=== PATIENT | male | born 1930 | race Caucasian/White ===

== ENCOUNTER 2016-05-21 19:45 | Observation (INO) | payer MEDICARE, OTHER ==
[~2016-05-21] VITALS: Ht 182.9 cm; Wt 100.0 kg
[~2016-05-21 19:45] MED LIST: ARIC10TA PO; CARV80 PO; CEPH500C3 PO; COUM5TAB PO; DIGO0.253 PO; HYDR-2768 PO; HYDR-3129 PO; INSP25TA OR; IRBE150T49 PO; LASI20TA PO; LIPI40TA PO; MEMA10 PO; QUET1TAB67 PO; TAMS0.4C67 PO; TEMA15 PO; [UNRECOGNIZED DRUG - OTHER] PO
[2016-05-21 20:08] VITALS: BP 132/58; PULSE 72; RESP 20; TEMP 97.4; O2SAT 96
[2016-05-21] MEDS ORDERED: SODIUM CHLORIDE 0.9% FLUSH 10 ML FLUSH IVF PRN (20:30)
--- NOTE | 2016-05-21 20:48 | PD ---
HPI Chief Complaint: Fall Time Seen by Provider: 20:41 Travel History International Travel<30 days: No Contact w/Intl Traveler<30days: No Traveled to known affect area: No History of Present Illness HPI Patient is an 86-year-old male brought into the emergency department via EMS for a change in mental status, increased falls. Discussed with over the phone, she states that he came back home after being in [place] last week , since that time he's been mumbling and has been unable to feed himself or hold a glass in his right hand. She states prior to last Saturday he was able to talk and was answering appropriately as well as feeding himself. Patient states that he's been urinating in the bed at night and today he slid from the bed to the floor, she put pillows all around him until the hospice nurse got there. Patient has been attending adult daycare. She states he is on hospice due to the dementia. She reports that he is DNR. She would like him thoroughly evaluated to make sure he did not have a stroke or a bleed. PFSH Past Medical History Alzheimer's Disease: Yes Arthritis: No Atrial Fibrillation: Yes Autoimmune Disease: No Blood Disorders: No Cancer: Yes Cardiac Catheterization: Yes Cardiovascular Problems: Yes (PACER WITH INTERNAL DEFIBRILLATOR) High Cholesterol: Yes Chest Pain: Yes Congestive Heart Failure: Yes Cerebrovascular Accident: Yes (multiple ) Coronary Artery Disease: Yes Dementia: Yes Diabetes: No Diminished Hearing: No Endocrine: No Gastrointestinal Disorders: No Headaches: No Hypertension: Yes Immune Disorder: No Musculoskeletal: No Psychiatric: No Reproductive: No Migraines: No Myocardial Infarction: Yes Seizures: No Sickle Cell Disease: No Thyroid Disease: No Past Surgical History Abdominal Surgery: Yes (HERNIA REPAIR X2) AICD: Yes ([id number] MOD#[id number]) Arteriovenous Shunt: No Cardiac Surgery: Yes (CABG 4 VESSEL BYPASS, PACER WITH IMPLANTED DEFIBRILATOR) Coronary Artery Bypass Graft: Yes (X3) Ear Surgery: No Endocrine Surgery: No Eye Surgery: No Genitourinary Surgery: Yes (TURP) Hysterectomy: Yes Insulin Pump: No Joint Replacement: No Neurologic Surgery: No Oral Surgery: No Pacemaker: Yes Thoracic Surgery: No Other Surgery: Yes (PROSTATE SX, HERNIA REPAIR x2) Social History Alcohol Use: No Tobacco Use: No (FORMER) Substance Use: No Allergies-Medications (Allergen,Severity, Reaction): Coded Allergies: MRI PRECAUTION (Verified Adverse Reaction, Severe, PACEMAKER 12-30-06 ADB, 05/21/16) Reported Meds & Prescriptions Reported Meds & Active Scripts Active Reported Keflex (Cephalexin Monohydrate) 500 Mg Cap 500 Mg PO TID [place] 10/325 (Hydrocodone-Acetaminophen 10/325) Acetaminophen 325/10 Hydrocodone Tab 1 Tab PO Q4H PRN Restoril 15 mg (Temazepam) 15 Mg Cap 1 Cap PO HS Hctz (Hydrochlorothiazide) 25 Mg Tab 25 Mg PO DAILY Lasix (Furosemide) 20 Mg Tab 20 Mg PO DAILY 30 Days [Cerofolin] 1 Tab PO DAILY Flomax (Tamsulosin HCl) 0.4 Mg Cap 0.4 Mg PO BID Inspra (Eplerenone) 25 Mg Tab 25 Mg OR DAILY Coumadin 5 mg (Warfarin Sodium) 5 Mg Tab 5 Mg PO DAILY Avapro (Irbesartan) 150 Mg Tab 300 Mg PO DAILY Namenda (Memantine) 10 Mg Tab 10 Mg PO BID Coreg Cr (Carvedilol) 80 Mg Caper 80 Mg PO DAILY Seroquel (Quetiapine Fumarate) 25 Mg Tab 100 Mg PO HS Aricept (Donepezil HCl) 10 Mg Tab 10 Mg PO BID Lipitor (Atorvastatin Calcium) 40 Mg Tab 40 Mg PO HS Digitek 0.25 mg (Digoxin) 0.25 Mg Tab 0.25 Mg PO DAILY Review of Systems ROS Limitations: Altered Mental Status Except as stated in HPI: all other systems reviewed are Neg Physical Exam Narrative GENERAL: Cachectic, well-developed, elderly gentleman. SKIN: Focused skin assessment warm/dry. HEAD: Atraumatic. Normocephalic. EYES: Pupils equal and round. No scleral icterus. No injection or drainage. MOUTH: Mucous membranes dry, no lesions, tongue and gums appear dry. ENT: No nasal bleeding or discharge. Mucous membranes pink and moist. NECK: Trachea midline. No JVD. CARDIOVASCULAR: Regular rate and rhythm. No murmur appreciated. RESPIRATORY: No accessory muscle use. Diminished with expiratory wheezing noted. GASTROINTESTINAL: Abdomen soft, non-tender, nondistended. Hepatic and splenic margins not palpable. MUSCULOSKELETAL: No obvious deformities. No clubbing. No cyanosis. No edema. NEUROLOGICAL: Drowsy, arousable. Garbled speech. Patient is not following commands. PSYCHIATRIC: Appropriate mood and affect; insight and judgment normal. Data Data Last Documented VS Vital Signs Date Time Temp Pulse Resp B/P Pulse Ox O2 Delivery O2 Flow Rate FiO2 05/21/16 21:29 62 20 133/62 96 05/21/16 20:08 97.4 Orders Complete Blood Count With Diff (05/21/16 20:27) Comprehensive Metabolic Panel (05/21/16 20:27) Creatine Kinase (Cpk) (05/21/16 20:27) Prothrombin Time / Inr (Pt) (05/21/16 20:27) Act Partial Throm Time (Ptt) (05/21/16 20:27) Lactic Acid Sepsis Protocol (05/21/16 20:27) Urinalysis - C+S If Indicated (05/21/16 20:27) Ct Brain W/O Iv Contrast(Rout) (05/21/16 20:27) Blood Glucose (05/21/16 20:27) Ecg Monitoring (05/21/16 20:27) Iv Access Insert/Monitor (05/21/16 20:27) Oximetry (05/21/16 20:27) Sodium Chloride 0.9% Flush (Ns Flush) (05/21/16 20:30) Cath For Specimen (05/21/16 20:27) Chest, Single Ap (05/21/16 ) Sodium Chlor 0.9% 1000 Ml Inj (Ns 1000 M (05/21/16 21:30) Labs Laboratory Tests Test 05/21/16 05/21/16 20:40 21:15 White Blood Count 7.6 TH/MM3 Red Blood Count 4.32 MIL/MM3 Hemoglobin 13.2 GM/DL Hematocrit 40.2 % Mean Corpuscular Volume 93.1 FL Mean Corpuscular Hemoglobin 30.5 PG Mean Corpuscular Hemoglobin 32.7 % Concent Red Cell Distribution Width 14.9 % Platelet Count 162 TH/MM3 Mean Platelet Volume 10.0 FL Neutrophils (%) (Auto) 66.8 % Lymphocytes (%) (Auto) 20.7 % Monocytes (%) (Auto) 10.4 % Eosinophils (%) (Auto) 1.5 % Basophils (%) (Auto) 0.6 % Neutrophils # (Auto) 5.1 TH/MM3 Lymphocytes # (Auto) 1.6 TH/MM3 Monocytes # (Auto) 0.8 TH/MM3 Eosinophils # (Auto) 0.1 TH/MM3 Basophils # (Auto) 0.0 TH/MM3 CBC Comment DIFF FINAL Differential Comment Prothrombin Time 12.3 SEC Prothromb Time International 1.1 RATIO Ratio Activated Partial 27.3 SEC Thromboplast Time Sodium Level 139 MEQ/L Potassium Level 3.6 MEQ/L Chloride Level 98 MEQ/L Carbon Dioxide Level 35.8 MEQ/L Anion Gap 5 MEQ/L Blood Urea Nitrogen 31 MG/DL Creatinine 2.02 MG/DL Estimat Glomerular Filtration 31 ML/MIN Rate Random Glucose 121 MG/DL Lactic Acid Level 2.4 mmol/L Calcium Level 8.9 MG/DL Total Bilirubin 0.8 MG/DL Aspartate Amino Transf 19 U/L (AST/SGOT) Alanine Aminotransferase 23 U/L (ALT/SGPT) Alkaline Phosphatase 89 U/L Total Creatine Kinase 52 U/L Total Protein 6.5 GM/DL Albumin 3.0 GM/DL Urine Color YELLOW Urine Turbidity CLEAR Urine pH 6.5 Urine Specific [place] 1.013 Urine Protein NEG mg/dL Urine Glucose (UA) NEG mg/dL Urine Ketones NEG mg/dL Urine Occult Blood NEG Urine Nitrite NEG Urine Bilirubin NEG Urine Urobilinogen 2.0 MG/DL Urine Leukocyte Esterase NEG Urine WBC 1 /hpf Urine Hyaline Casts 17 /lpf Microscopic Urinalysis Comment CATH-CULT NOT IND MDM Medical Decision Making Medical Screen Exam Complete: Yes Emergency Medical Condition: Yes Interpretation(s) Last Impressions Head CT 05/21/162026 Signed Impressions: Service Date/Time: Saturday, May 21, 2016 20:41 - CONCLUSION: Atrophy otherwise negative. Vamshi Meyer MD FACR Laboratory Tests Test 05/21/16 05/21/16 20:40 21:15 White Blood Count 7.6 TH/MM3 Red Blood Count 4.32 MIL/MM3 Hemoglobin 13.2 GM/DL Hematocrit 40.2 % Mean Corpuscular Volume 93.1 FL Mean Corpuscular Hemoglobin 30.5 PG Mean Corpuscular Hemoglobin 32.7 % Concent Red Cell Distribution Width 14.9 % Platelet Count 162 TH/MM3 Mean Platelet Volume 10.0 FL Neutrophils (%) (Auto) 66.8 % Lymphocytes (%) (Auto) 20.7 % Monocytes (%) (Auto) 10.4 % Eosinophils (%) (Auto) 1.5 % Basophils (%) (Auto) 0.6 % Neutrophils # (Auto) 5.1 TH/MM3 Lymphocytes # (Auto) 1.6 TH/MM3 Monocytes # (Auto) 0.8 TH/MM3 Eosinophils # (Auto) 0.1 TH/MM3 Basophils # (Auto) 0.0 TH/MM3 CBC Comment DIFF FINAL Differential Comment Prothrombin Time 12.3 SEC Prothromb Time International 1.1 RATIO Ratio Activated Partial 27.3 SEC Thromboplast Time Sodium Level 139 MEQ/L Potassium Level 3.6 MEQ/L Chloride Level 98 MEQ/L Carbon Dioxide Level 35.8 MEQ/L Anion Gap 5 MEQ/L Blood Urea Nitrogen 31 MG/DL Creatinine 2.02 MG/DL Estimat Glomerular Filtration 31 ML/MIN Rate Random Glucose 121 MG/DL Lactic Acid Level 2.4 mmol/L Calcium Level 8.9 MG/DL Total Bilirubin 0.8 MG/DL Aspartate Amino Transf 19 U/L (AST/SGOT) Alanine Aminotransferase 23 U/L (ALT/SGPT) Alkaline Phosphatase 89 U/L Total Creatine Kinase 52 U/L Total Protein 6.5 GM/DL Albumin 3.0 GM/DL Urine Color YELLOW Urine Turbidity CLEAR Urine pH 6.5 Urine Specific Martha 1.013 Urine Protein NEG mg/dL Urine Glucose (UA) NEG mg/dL Urine Ketones NEG mg/dL Urine Occult Blood NEG Urine Nitrite NEG Urine Bilirubin NEG Urine Urobilinogen 2.0 MG/DL Urine Leukocyte Esterase NEG Urine WBC 1 /hpf Urine Hyaline Casts 17 /lpf Microscopic Urinalysis Comment CATH-CULT NOT IND Vital Signs Date Time Temp Pulse Resp B/P Pulse Ox O2 Delivery O2 Flow Rate FiO2 05/21/16 20:14 76 20 96 05/21/16 20:08 97.4 72 20 132/58 96 Differential Diagnosis CVA versus UTI versus progression of dementia versus other. Narrative Course Patient is an 86-year-old male brought in by EMS for evaluation due to increased falls and change in mental status. Discussed with over the phone , states she wants the patient thoroughly evaluated. Labs and imaging ordered and pending. On-call hospice nurse is at bedside. does want patient placed, hospice nurse is going to place patient in an inpatient bed. CT scan of the brain shows atrophy, no acute changes. Chest x-ray shows cardiomegaly with mild congestive heart failure CBC is unremarkable Urinalysis unremarkable Chemistry shows elevated BUN and creatinine at 31/2.02 Lactic acid 2.4 Coags unremarkable Patient was given 1 L IV fluids. 2214- Discussed findings with when labs and imaging results were available. She would like patient placed in an inpatient facility, she stated that she could not care for him. 2234- discussed with Dr. Marshall, patient will be placed under observation. Patient's primary doctor is Dr. Juan Oneil. software firmware engineer Barb left a note stating if patient is placed under observation hospice will follow-up in the morning. Her number is [phone]. Diagnosis Primary Impression: Change in mental status Qualified Code: R41.82 - Altered mental status, unspecified altered mental status type Additional Impressions: Acute kidney injury CHF (congestive heart failure) Qualified Code: I50.9 - Congestive heart failure, unspecified congestive heart failure chronicity, unspecified congestive heart failure type Dementia Qualified Code: F03.90 - Dementia without behavioral disturbance, unspecified dementia type Frequent falls Admitting Information Admitting Physician Requests: Observation Condition: Stable Traci Snell [facility] May 21, 2016 20:48
[2016-05-21 20:55] LABS: AUTOMATED NEUTROPHIL # 5.1 TH/MM3 (1.8-7.7); BASOPHIL % 0.6 % (0.0-2.0); EOSINOPHIL # 0.1 TH/MM3 (0-0.4); EOSINOPHIL % 1.5 % (0.0-4.0); HEMATOCRIT 40.2 % (39.0-51.0); HEMO FLAGS DIFF FINAL; LYMPH % 20.7 % (9.0-44.0); LYMPHOCYTE # 1.6 TH/MM3 (1.0-4.8); MEAN CELL VOLUME 93.1 FL (80.0-100.0); MEAN CORPUSCULAR HEMOGLOBIN 30.5 PG (27.0-34.0); MEAN CORPUSCULAR HGB CONC 32.7 % (32.0-36.0); MONO % 10.4 % (0.0-8.0); NEUT % 66.8 % (16.0-70.0); PLATELET COUNT 162 TH/MM3 (150-450); RED BLOOD COUNT 4.32 MIL/MM3 (4.50-5.90); RED CELL DISTRIBUTION WIDTH 14.9 % (11.6-17.2); WHITE BLOOD COUNT 7.6 TH/MM3 (4.0-11.0)
[2016-05-21 21:06] LABS: APTT (PATIENT) 27.3 SEC (24.3-30.1); INTERNATIONAL NORMALIZED RATIO 1.1 RATIO; PROTHROMBIN TIME - PATIENT 12.3 SEC (9.8-11.6)
--- NOTE | 2016-05-21 21:06 | RADRPT ---
EXAM DATE/TIME: 05/21/2016 20:41 [facility] COMPARISON: CHEST SINGLE AP, July 20, 2013, 18:59. CT BRAIN W/O CONTRAST, January 29, 2010, 14:58. INDICATIONS : Recent falls. Altered mental status. RADIATION DOSE: 56.35 CTDIvol (mGy) MEDICAL HISTORY : Dementia. Cerebrovascular disease. Alzheimers.Cardiac HTN SURGICAL HISTORY : None. ENCOUNTER: Initial ACUITY: 1 day PAIN SCALE: Non-responsive LOCATION: cranial TECHNIQUE: Multiple contiguous axial images were obtained of the head. Using automated exposure control and adj ustment of the mA and/or kV according to patient size, radiation dose was kept as low as reasonably a chievable to obtain optimal diagnostic quality images. FINDINGS: There is marked central and cortical atrophy with dilatation of ventricular and sulcal spaces. There is no parenchymal hemorrhage, acute infarction or mass lesion identified. There are no extra-a xial fluid collections appreciated. The posterior fossa is unremarkable with midline fourth ventricl e. The portion of the orbits and paranasal sinuses visualized are unremarkable. CONCLUSION: Atrophy otherwise negative. Vamshi Meyer MD FACR on May 21, 2016 at 21:04 Board Certified Radiologist. This report was verified electronically.
[2016-05-21 21:14] LABS: ANION GAP 5 MEQ/L (5-15); AST (GOT) 19 U/L (15-37); BICARBONATE 35.8 MEQ/L (21.0-32.0); BLOOD UREA NITROGEN 31 MG/DL (7-18); CHLORIDE 98 MEQ/L (98-107); GLOMERULAR FILTRATION RATE 31 ML/MIN (>89); POTASSIUM 3.6 MEQ/L (3.5-5.1); SODIUM (NA) 139 MEQ/L (136-145)
[2016-05-21 21:17] LABS: ALKALINE PHOSPHATASE 89 U/L (45-117); ALT (GPT) 23 U/L (12-78); TOTAL BILIRUBIN ADULT 0.8 MG/DL (0.2-1.0)
[2016-05-21 21:18] LABS: CREATINE KINASE 52 U/L (39-308)
[2016-05-21 21:28] VITALS: RESP 20; O2SAT 98
[2016-05-21 21:29] VITALS: BP 133/62; PULSE 62; RESP 20; O2SAT 96
[2016-05-21] MEDS ORDERED: SODIUM CHLOR 0.9% 1000 ML INJ 1,000 ML IV ONE (21:30)
[2016-05-21 21:34] LABS: BLOOD, URINE NEG (NEG); GLUCOSE,URINE NEG (NEG); HYALINE CAST, URINE 17 /lpf (RARE); KETONE, URINE NEG (NEG); NITRITE,URINE NEG (NEG); PH, URINE 6.5 (5.0-8.5); URINE COLOR YELLOW (YELLW/STRAW)
[2016-05-21 21:37] LABS: COMMENT (UR) CATH-CULT NOT IND; CULTURE IF INDICATED CATH CULTURE NOT IND
--- NOTE | 2016-05-21 22:01 | RADRPT ---
EXAM DATE/TIME: 05/21/2016 21:13 [facility] COMPARISON: CHEST SINGLE AP, July 20, 2013, 18:59. INDICATIONS : Short of breath. MEDICAL HISTORY : Dementia. Cerebrovascular disease. Alzheimer's. Cardiac HTN. SURGICAL HISTORY : Pacemaker. ENCOUNTER: Initial ACUITY: 1 day PAIN SCORE: Non-responsive. LOCATION: Bilateral chest FINDINGS: Pacer implanted in the left chest. There is cardiomegaly with mild interstitial edema. There is no significant pleural effusion. Portion of bony skeleton visualized is unremarkable. CONCLUSION: Cardiomegaly with mild congestive failure. Vamshi Meyer MD FACR on May 21, 2016 at 21:54 Board Certified Radiologist. This report was verified electronically.
[2016-05-21 22:51] LABS: LACTIC ACID GHOST NOT REPORTABLE
[2016-05-21] MEDS ORDERED: SODIUM CHLORIDE 0.9% FLUSH 10 ML FLUSH IV FLUSH PRN (23:00)
[2016-05-21] MEDS ORDERED: NALOXONE HCL 0.4 MG/ML AMP IV PRN (23:00)
[2016-05-22] VITALS (7 sets, daily range): BP systolic 116–161; BP diastolic 65–80; PULSE 61–137; RESP 18–20; TEMP 96.8–98.9; O2SAT 92–99
--- NOTE | 2016-05-22 01:03 | HHI.HP ---
[facility] Unknown Admission Diagnosis change in mental status, acute kidney injury, falls Diagnoses: Chief Complaint: Not able to give specific complaints Travel History International Travel<30 Days: No Contact w/Intl Traveler <30 Da: No Traveled to Known Affected Are: No History of Present Illness History from ER provider communication, review of medical records, and nursing staff. Patient was brought in by ambulance because the was reporting increased falls. The reported to ER staff that she was helping him move from chair to bed but patient slipped to the ground. No head trauma. Patient's blood sugar upon arrival at triage was 120. Vitals were stable with blood pressure of 132/58, pulse of 72, 96% on room air. Patient's temperature was 97.4 orally. ER provider had called patient's and also obtained further history. Apparently patient was discharged from [facility] last week. He was able to feed himself while at [facility]. However for the past 1 week, she stated that he was becoming more weak and not able to feed himself and was mostly mumbling. He also had frequent falls. Further work up in ER revealed mild congestion on chest x-ray. He was also noted to have acute renal failure on blood work. patient is on hospice at home. Review of his medical records revealed he is on hydrocodone at home. Review of Systems ROS Limitations: Altered Mental Status Not able to obtain review of system at all. Past Family Social History Past Medical History Per EMR: CADstatus post CABG in Class III CHF Sick sinus syndromestatus post pacemaker placement in 2007. Ischemic cardiomyopathystatus post AICD placement Hypertension Hyperlipidemia Aortic stenosis with mild aortic insufficiency, mitral regurgitation, tricuspid regurgitation. History of multiple TIAs BPHstatus post TURP Atrial fibrillationon Coumadin Moderate LV dysfunction GERD Dementia Past Surgical History Per EMR: Cardiac catheterizations Hernia repair 2 Pacemaker placements AICD placement Reported Medications Patient's medications listed on EMRreviewed. However it seems that this wasn' t reconciled yet today. Allergies: Coded Allergies: MRI PRECAUTION (Verified Adverse Reaction, Severe, PACEMAKER 12-30-06 ADB, 05/21/16) Family History Per EMR: Mother with diabetes, hypertension, CVA and at age 79. Father at age 82. Daughter with hypertension Social History Per EMR: Patient is a past smoker but quit in 1994. patient lives with his and is retired from [employer]. Physical Exam Vital Signs Vital Signs Date Time Temp Pulse Resp B/P Pulse Ox O2 Delivery O2 Flow Rate FiO2 05/22/16 00:38 68 20 132/68 96 05/21/16 21:29 62 20 133/62 96 05/21/16 21:28 20 98 05/21/16 20:14 76 20 96 05/21/16 20:08 97.4 72 20 132/58 96 Physical Exam GENERAL: This is an elderly gentleman, sleeping and was difficult to arouse. He however which move his extremities with harsh sternal rub SKIN: No rashes, ecchymoses or lesions. Cool and dry. HEAD: Atraumatic. Normocephalic. No temporal or scalp tenderness. EYES: Pinpoint pupils. Almost nonreactive. No scleral icterus. No injection or drainage. ENT: Nose without bleeding, purulent drainage or septal hematoma. Airway patent. NECK: Trachea midline. No JVD Supple, nontender, no meningeal signs. CARDIOVASCULAR: Regular rate and rhythm without murmurs, gallops, or rubs. Pacer/defibrillator site clean. RESPIRATORY: Clear to auscultation. Breath sounds equal bilaterally. No wheezes , rales, or rhonchi. GASTROINTESTINAL: Abdomen soft, non-tender, nondistended. . No guarding. : Seems to have suprapubic tenderness and distention on examination MUSCULOSKELETAL: Extremities without clubbing, cyanosis, or edema. No calf tenderness. Right lower extremity significantly bigger than the left. Question whether this is chronic. This was also the leg for bypass grafting. NEUROLOGICAL: Quite lethargic. Sleeping. However responds by moving around with harsh sternal rub. Nonverbal at present. Laboratory Laboratory Tests Test 05/21/16 05/21/16 05/21/16 20:40 21:15 23:15 White Blood Count 7.6 Red Blood Count 4.32 Hemoglobin 13.2 Hematocrit 40.2 Mean Corpuscular Volume 93.1 Mean Corpuscular Hemoglobin 30.5 Mean Corpuscular Hemoglobin 32.7 Concent Red Cell Distribution Width 14.9 Platelet Count 162 Mean Platelet Volume 10.0 Neutrophils (%) (Auto) 66.8 Lymphocytes (%) (Auto) 20.7 Monocytes (%) (Auto) 10.4 Eosinophils (%) (Auto) 1.5 Basophils (%) (Auto) 0.6 Neutrophils # (Auto) 5.1 Lymphocytes # (Auto) 1.6 Monocytes # (Auto) 0.8 Eosinophils # (Auto) 0.1 Basophils # (Auto) 0.0 CBC Comment DIFF FINAL Differential Comment Prothrombin Time 12.3 Prothromb Time International 1.1 Ratio Activated Partial 27.3 Thromboplast Time Sodium Level 139 Potassium Level 3.6 Chloride Level 98 Carbon Dioxide Level 35.8 Anion Gap 5 Blood Urea Nitrogen 31 Creatinine 2.02 Estimat Glomerular Filtration 31 Rate Random Glucose 121 Lactic Acid Level 2.4 1.5 Calcium Level 8.9 Total Bilirubin 0.8 Aspartate Amino Transf 19 (AST/SGOT) Alanine Aminotransferase 23 (ALT/SGPT) Alkaline Phosphatase 89 Total Creatine Kinase 52 Total Protein 6.5 Albumin 3.0 Urine Color YELLOW Urine Turbidity CLEAR Urine pH 6.5 Urine Specific [place] 1.013 Urine Protein NEG Urine Glucose (UA) NEG Urine Ketones NEG Urine Occult Blood NEG Urine Nitrite NEG Urine Bilirubin NEG Urine Urobilinogen 2.0 Urine Leukocyte Esterase NEG Urine WBC 1 Urine Hyaline Casts 17 Microscopic Urinalysis Comment CATH-CULT NOT IND Result Diagram: 05/21/16203905/21/162039 Imaging Last [address] 05/21/162026 Signed Impressions: Service Date/Time: Saturday, May 21, 2016 20:41 - CONCLUSION: Atrophy otherwise negative. Vamshi Meyer MD FACR Chest X-Ray 05/21/16 0000 Signed Impressions: Service Date/Time: Saturday, May 21, 2016 21:13 - CONCLUSION: Cardiomegaly with mild congestive failure. Vamshi Meyer MD FACR Assessment and Plan Problem List: (1) Change in mental status ICD Code: R41.82 Status: Acute (2) Frequent falls ICD Code: R29.6 Status: Acute (3) Acute kidney injury ICD Code: N17.9 Status: Acute (4) Dementia ICD Code: F03.90 Status: Acute (5) CHF (congestive heart failure) ICD Code: I50.9 Status: Acute Assessment and Plan Impression: Altered mental statusetiology unclear. Likely this is toxic encephalopathy. Rule out acute urinary retention/opiate overdose and a hospice patient/CO2 retention given that patient also has pinpoint pupils. Subtherapeutic INR Calf asymmetryquestion whether this is chronic versus acute. However given that patient is on Coumadin with subtherapeutic INR, would treat with Lovenox overlapping. Ultrasound in a.m. Elevated bicarbonate on chemistryquestion whether there is respiratory acidosis leading to altered mental status Acute renal failurepossible from poor oral intake given his mental status. However would need to rule out acute urinary retention. CADstatus post CABG in Class III CHF Sick sinus syndromestatus post pacemaker placement in 2007. Ischemic cardiomyopathystatus post AICD placement Hypertension Hyperlipidemia Aortic stenosis with mild aortic insufficiency, mitral regurgitation, tricuspid regurgitation. History of multiple TIAs BPHstatus post TURP Atrial fibrillationon Coumadin Moderate LV dysfunction GERD Dementia Plan: We'll try trial of Narcan one dose to see if his mental status improved. Also bladder scan stat. If there is evidence of retention, will insert Boswell catheter. We'll start patient on Lovenox therapeutic dose with Coumadin overlap. However would need to address this with family members and hospice team since patient is here for frequent falls as well. Ultrasound of right lower extremity in a.m. As to his renal failure, we'll check for acute urinary retention with bladder scan, and we'll hydrate him orally given that he has CHF with AICD placement. Otherwise resume his home medications. DVT prophylaxison Coumadin/Lovenox. Discussed Condition With Patient's nurse, ER provider, ER nurse Problem Qualifiers (1) Change in mental status: Qualified Code: R41.82 - Altered mental status, unspecified altered mental status type (2) Dementia: Qualified Code: F03.90 - Dementia without behavioral disturbance, unspecified dementia type (3) CHF (congestive heart failure): Qualified Code: I50.9 - Congestive heart failure, unspecified congestive heart failure chronicity, unspecified congestive heart failure type Terrell Marshall MD May 22, 2016 01:03
[2016-05-22] MEDS ORDERED: ENOXAPARIN SODIUM 100 MG/ML SYRINGE SQ SCH (02:00)
[2016-05-22] MEDS ORDERED: SENNOSIDES 8.6 MG TAB PO PRN (08:00)
--- NOTE | 2016-05-22 08:03 | HHI.PR ---
Subjective Remarks Follow-up for frequent falls. The patient has dementia at baseline. He is currently awake and alert, but remains confused and disoriented. He doesn't really have any acute complaints. He states that he's been eating. He denies any problems urinating. Cannot say what his last bowel movement was. Discussed with RN, will update home medications when able. Objective Vitals Vital Signs Date Time Temp Pulse Resp B/P Pulse Ox O2 Delivery O2 Flow Rate FiO2 05/22/16 05:18 98.7 68 18 131/78 98 05/22/16 01:34 69 05/22/16 00:38 68 20 132/68 96 05/21/16 21:29 62 20 133/62 96 05/21/16 21:28 20 98 05/21/16 20:14 76 20 96 05/21/16 20:08 97.4 72 20 132/58 96 I/O 05/21/16 05/21/16 05/21/16 05/22/16 05/22/16 05/22/16 07:00 15:00 23:00 07:00 15:00 23:00 Output Total 600 ml Balance -600 ml Output Urine Total 600 ml Bladder Scan Volume Amount 504 ml Result Diagram: 05/21/16203905/21/162039 Imaging Last Impressions Head CT 05/21/162026 Signed Impressions: Service Date/Time: Saturday, May 21, 2016 20:41 - CONCLUSION: Atrophy otherwise negative. Vamshi Meyer MD FACR Chest X-Ray 05/21/16 0000 Signed Impressions: Service Date/Time: Saturday, May 21, 2016 21:13 - CONCLUSION: Cardiomegaly with mild congestive failure. Vamshi Meyer MD FACR Objective Remarks GENERAL: Well-developed well-nourished. In no acute distress. Boswell catheter in place with clean hematuria. SKIN: Warm and dry. Old well-healed midline sternotomy and abdominal surgical scars. Pacemaker in place in left chest wall. HEENT: Normocephalic. Pupils equal and round. Mucous membranes pink and moist. CARDIOVASCULAR: Regular rate and rhythm. No murmur appreciated. RESPIRATORY: No accessory muscle use. Clear to auscultation. Breath sounds equal bilaterally. GASTROINTESTINAL: Abdomen soft, non-tender, nondistended. Bowel sounds x4. MUSCULOSKELETAL: No obvious deformities. No clubbing or cyanosis. No edema. NEUROLOGICAL: Awake and alert. No focal neurological deficits. Moves upper and lower extremities spontaneously. Normal speech. PSYCHIATRIC: Pleasantly confused mood and affect; insight and judgment poor. A/P Problem List: (1) Change in mental status ICD Code: R41.82 Status: Acute (2) Frequent falls ICD Code: R29.6 Status: Acute (3) Acute kidney injury ICD Code: N17.9 Status: Acute (4) Dementia ICD Code: F03.90 Status: Acute (5) CHF (congestive heart failure) ICD Code: I50.9 Status: Acute Assessment and Plan 86-year-old male with past medical history of CAD, CHF, HTN, HLD, , TIA, BPH, A. fib, GERD, dementia who was brought in by his for increasing falls and decreased oral intake Acute encephalopathy on top of chronic dementia: Suspect metabolic with dehydration and acute urinary retention, management as below. Head CT reviewed with atrophy, otherwise no acute process. Seems more awake today. Continue to closely monitor for clinical improvement. Reportedly the patient is on hospice , if this is confirmed with the patient's we will consult hospice, may benefit from care center. Acute urinary retention: With history of BPH s/p TURP. Patient straight cathed in the emergency room with about 600 cc of urine. Patient with bladder scan with greater than 500 cc of urine. Boswell catheter inserted. Urology consulted. Renal bladder ultrasound ordered. Start bowel regimen. Acute kidney injury: Likely secondary to decreased oral intake. Creatinine 2.02 , previously 1.41 on 08/31/14. Given IVF bolus in the ED. Caution with IVF and cardiomyopathy. Follow-up BMP pending. Frequent falls: Likely secondary to the above. Fall precautions. PT eval. Case management consult. Atrial fibrillation on chronic anticoagulation: Reportedly on Coumadin at home, however INR 1.1. Started on full dose Lovenox. Reconcile and resume home Coumadin dose, likely with pharmacy consult. Right lower extremity swelling noted on admission: Ultrasound Doppler ordered. Reconcile and resume home medications as indicated. Discharge Planning 1300 the patient is here with weakness, falls, possibly urinary retention, possible constipation. As this is a hospice patient, all of these issues could be managed as outpatient under the care of the hospice team. Hospice was contacted by case management, and are planning on transferring the patient to the care center for the time being. We will discharge the patient back into the care of hospice today. Discussed with Dr. Pickett. Problem Qualifiers (1) Change in mental status: Qualified Code: R41.82 - Altered mental status, unspecified altered mental status type (2) Dementia: Qualified Code: F03.90 - Dementia without behavioral disturbance, unspecified dementia type (3) CHF (congestive heart failure): Qualified Code: I50.9 - Congestive heart failure, unspecified congestive heart failure chronicity, unspecified congestive heart failure type Paul Sidhu May 22, 2016 08:03 Gideon Pickett DO May 22, 2016 16:55
[2016-05-22] MEDS ORDERED: DOCUSATE SODIUM 100 MG CAP PO SCH (09:00)
[2016-05-22] MEDS ORDERED: SODIUM CHLORIDE 0.9% FLUSH 10 ML FLUSH IV FLUSH SCH (09:00)
[2016-05-22] MEDS ORDERED: SENNOSIDES 8.6 MG TAB PO SCH (10:52)
[2016-05-22] MEDS ORDERED: cloNIDine HCL 0.1 MG TAB PO PRN (11:00)
--- NOTE | 2016-05-22 11:08 | RADRPT ---
EXAM DATE/TIME: 05/22/2016 10:28 [facility] COMPARISON: No previous studies available for comparison. INDICATIONS : Right leg pain and swelling. MEDICAL HISTORY : Myocardial infarction. Congestive heart failure. Hypercholesterolemia. Cerebrovascular accident. A lzheimer's disease. cad. a.fib. hypertension. SURGICAL HISTORY : Pacemaker. CABG. Hernia repair. TURP. ENCOUNTER: Initial ACUITY: 1 day PAIN SCORE: 0/10 LOCATION: Right leg. TECHNIQUE: Venous ultrasound of the leg was performed from the inguinal ligament to the proximal calf. Real-sangeeta e, color Doppler and spectral tracing, compression and augmentation techniques were used. FINDINGS: There is normal compressibility of the deep venous system from the inguinal region to the proximal ca lf. No echogenic clot is seen in the lumen of the common femoral, femoral, popliteal, and posterior tibial veins. There is a normal response of the venous system to proximal and distal augmentation an d respiration. CONCLUSION: Normal examination. Ashu Banuelos MD on May 22, 2016 at 11:07 Board Certified Radiologist. This report was verified electronically.
--- NOTE | 2016-05-22 12:02 | RADRPT ---
EXAM DATE/TIME: 05/22/2016 10:59 [facility] COMPARISON: No previous studies available for comparison. INDICATIONS : Acute urinary retention. Renal failure. MEDICAL HISTORY : Myocardial infarction. Congestive heart failure. Hypercholesterolemia. Cerebrovascular accident. Alzh eimer's disease. cad. a.fib. hypertension. SURGICAL HISTORY : Pacemaker. CABG. Hernia repair. TURP. ENCOUNTER: Initial ACUITY: 1 day PAIN SCORE: 0/10 LOCATION: Bilateral flank MEASUREMENTS: RIGHT KIDNEY: 10.2 x 4.1 x 6.2 cm LEFT KIDNEY: 9.5 x 4.7 x 5.7 cm FINDINGS: RIGHT KIDNEY: Renal cortex is normal in thickness and echotexture. No hydronephrosis, stone, or mass. LEFT KIDNEY: Renal cortex is normal in thickness and echotexture. No hydronephrosis, stone, or mass. BLADDER: A Boswell catheter is noted within the urinary bladder. The bladder is abnormal with either marked wall thickening seen surrounding the nondistended bladder and catheter versus bladder mass or clot fillin g the bladder. The prostate is prominent measuring 5.5 x 5.5 x 3 cm. CONCLUSION: 1. The kidneys are normal in appearance. 2. The bladder is abnormal with either marked wall thickening or bladder filled with debris or clot. The possibility of tumor is not entirely excluded as the bladder is not well-distended. Alpesh hanley MD on May 22, 2016 at 11:56 Board Certified Radiologist. This report was verified electronically.
[2016-05-22 12:52] LABS: BASOPHIL # 0.1 TH/MM3 (0-0.2); BASOPHIL % 0.9 % (0.0-2.0); EOSINOPHIL # 0.1 TH/MM3 (0-0.4); EOSINOPHIL % 0.9 % (0.0-4.0); HEMATOCRIT 42.2 % (39.0-51.0); HEMO FLAGS DIFF FINAL; LYMPH % 10.8 % (9.0-44.0); LYMPHOCYTE # 1.1 TH/MM3 (1.0-4.8); MEAN CELL VOLUME 93.1 FL (80.0-100.0); MEAN CORPUSCULAR HEMOGLOBIN 30.3 PG (27.0-34.0); MEAN CORPUSCULAR HGB CONC 32.6 % (32.0-36.0); MONO % 9.1 % (0.0-8.0); NEUT % 78.3 % (16.0-70.0); PLATELET COUNT 147 TH/MM3 (150-450); RED BLOOD COUNT 4.53 MIL/MM3 (4.50-5.90); RED CELL DISTRIBUTION WIDTH 14.6 % (11.6-17.2); WHITE BLOOD COUNT 10.3 TH/MM3 (4.0-11.0)
[2016-05-22 13:22] LABS: BICARBONATE 32.6 MEQ/L (21.0-32.0)
[2016-05-22 13:36] LABS: POTASSIUM 3.8 MEQ/L (3.5-5.1)
== END 2016-05-22 17:28 | disposition hospice, inpatient (51) ==
LOC: NEPC 19:45 → NEDA 22:36 → NEPGCP 05-22 00:22
PROVIDERS: ADMIT Hospitalist; ATTEND Hospitalist
DX: R41.82 Altered mental status, unspecified (principal); G30.9 Alzheimer's disease, unspecified; N17.9 Acute kidney failure, unspecified; I50.9 Heart failure, unspecified; I11.0 Hypertensive heart disease with heart failure; R29.6 Repeated falls; R63.3 Feeding difficulties; I48.91 Unspecified atrial fibrillation; E78.00 Pure hypercholesterolemia, unspecified; R07.9 Chest pain, unspecified; Z86.73 Personal history of transient ischemic attack (TIA), and cerebral infarction without residual deficits; I25.10 Atherosclerotic heart disease of native coronary artery without angina pectoris; I25.2 Old myocardial infarction; Z95.1 Presence of aortocoronary bypass graft; Z79.899 Other long term (current) drug therapy; R53.1 Weakness; Z79.01 Long term (current) use of anticoagulants; K21.9 Gastro-esophageal reflux disease without esophagitis; Z95.810 Presence of automatic (implantable) cardiac defibrillator; Z87.891 Personal history of nicotine dependence; R33.8 Other retention of urine
CPT/HCPCS: 70450; 71010; 76775; 80048; 80053; 81001; 82550; 83605; 85025; 85610; 85730; 93971; 97162; 99285; G0378; G8987; G8988; J1650; J2310; P9612